=== PATIENT | female | born 2005 | race Two or more races ===

== ENCOUNTER 2024-07-09 16:11 | Outpatient (CLI) | payer MEDICAID, SELFPAY ==
[2024-07-09 23:20] LABS: GC DNA Amplified* NOT DETECTED (No Detected)
[2024-07-09 23:40] LABS: Chlamydia DNA Amplified* DETECTED (No Detected)
== END 2024-07-09 16:12 | disposition home or self-care (01) ==
LOC: NFLDUCREF 16:22
PROVIDERS: PCP Nurse Practitioner; Visit Provider Nurse Practitioner
DX: Z11.3 Encounter for screening for infections with a predominantly sexual mode of transmission (principal)
CPT/HCPCS: 87491; 87591

== ENCOUNTER 2024-10-29 18:55 | Outpatient (CLI) | payer MEDICAID, SELFPAY ==
[2024-10-29 23:47] LABS: Chlamydia DNA Amplified* NOT DETECTED (No Detected); GC DNA Amplified* NOT DETECTED (No Detected)
== END 2024-10-29 18:56 | disposition home or self-care (01) ==
LOC: NFLDUCREF 18:56
PROVIDERS: Visit Provider Nurse Practitioner Family
DX: R30.0 Dysuria (principal); Z11.3 Encounter for screening for infections with a predominantly sexual mode of transmission
CPT/HCPCS: 87086; 87491; 87591